=== PATIENT | male | born 1975 | race African-American/Black ===

== ENCOUNTER → 2017-01-29 | Outpatient (CLI) | payer OTHER ==
--- NOTE | 2017-01-29 17:06 | REP ---
CT of the abdomen pelvis without IV and oral contrast: There are no comparison studies. There is marked left hydronephrosis and hydroureter to the left ureteral vesicle junction at the urinary bladder. There is no calculus in the left ureter. Therefore, there may be a stricture of the distal left ureter at its junction with the urinary bladder. There is a nonobstructive 3 mm calculus in the lower pole analy of the left kidney. There are no right renal calculi. There is no right hydronephrosis. The left kidney measures 12 cm craniocaudad length. The right kidney measures 12 cm craniocaudad length. However, there is diffuse renal cortical thickening in the left kidney is a consequence of the hydronephrosis. This suggests the hydronephrosis may be chronic. There is no perinephric stranding or fluid collection on the right or the left. The visualized lung marie are unremarkable. The unenhanced hepatic parenchyma, gallbladder, pancreas and spleen are unremarkable. The adrenals, abdominal aorta, bowel and mesentery are unremarkable. Pelvis: The appendix is unremarkable. Bladder is nondistended and cannot be evaluated. There is no ascites or adenopathy. The pelvic bowel loops are unremarkable. Impression: Marked left hydronephrosis and hydroureter to the level of the urinary bladder, likely chronic as there is diffuse renal cortical thinning of the left kidney. There is a nonobstructive 3 mm calculus in the left kidney in the lower pole analy. There are no ureteral calculi on the left on the right. 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 Signed by Kristopher Vera MD 01/29/2017 04:58 P
== END ==
LOC: M RAD 16:10
PROVIDERS: ATTEND Physician Assistant
DX: R10.9 Unspecified abdominal pain (principal)

== ENCOUNTER → 2017-03-11 | Outpatient (CLI) | payer OTHER ==
[2017-03-11 17:16] LABS: INR 0.97
[2017-03-11 17:17] LABS: PARTIAL THROMBOPLASTIN TIME 30.8 SECONDS (26.8-37.9)
[2017-03-11 17:20] LABS: HEMATOCRIT 45.9 % (42.0-52.0); HEMOGLOBIN 15.5 g/dl (14.0-18.0); MEAN CORPUSCULAR HEMOGLOBIN 29.2 pg (27.0-33.0); MEAN CORPUSCULAR HGB CONC 33.8 g/dl (32.0-36.5); MEAN CORPUSCULAR VOLUME 86.4 fl (80.0-96.0); PLATELET COUNT, AUTOMATED 198 10^3/uL (150-450); RED BLOOD COUNT 5.31 10^6/uL (4.30-6.10); RED CELL DISTRIBUTION WIDTH 12.7 % (11.5-14.5)
[2017-03-11 18:00] LABS: ANION GAP 7 MEQ/L (8-16); BLOOD UREA NITROGEN 15 MG/DL (7-18); CALCIUM LEVEL 9.1 MG/DL (8.5-10.1); CARBON DIOXIDE LEVEL 33 MEQ/L (21-32); CHLORIDE LEVEL 102 MEQ/L (98-107); CREATININE FOR GFR 1.16 MG/DL (0.70-1.30); GLOMERULAR FILTRATION RATE > 60.0 (>60); GLUCOSE, FASTING 97 MG/DL (70-100); POTASSIUM SERUM 3.6 MEQ/L (3.5-5.1); SODIUM LEVEL 142 MEQ/L (136-145)
== END ==
LOC: M SMT 11:56
DX: Z01.818 Encounter for other preprocedural examination (principal); N13.1 Hydronephrosis with ureteral stricture, not elsewhere classified; N39.0 Urinary tract infection, site not specified
CPT/HCPCS: 80048

== ENCOUNTER 2017-03-21 09:16 | Day surgery (SDC) | payer OTHER ==
[2017-03-21] MEDS ORDERED: LIDOCAINE 1% SDV 5 ML VIAL SQ (09:30)
[2017-03-21] MEDS: LR 1,000 ML IV (09:45)
[2017-03-21] MEDS ORDERED: fentaNYL 100 MCG/2 ML INJECTION (J3010) As Ordered (09:46)
[2017-03-21] MEDS ORDERED: MIDAZOLAM INJ 2 MG/2 ML VIAL (J2250) As Ordered (09:46)
[2017-03-21] MEDS: CONRAY-60 60% 50ML VIAL (Q9961) As Ordered (10:40)
[2017-03-21] MEDS ORDERED: PERCOCET 5MG/325MG TAB PO ×3 (11:45)
[2017-03-21] MEDS ORDERED: LR 1,000 ML IV (11:45)
[2017-03-21] MEDS ORDERED: ONDANSETRON 4MG/2ML VIAL (J2405) IV (11:45)
[2017-03-21] MEDS ORDERED: fentaNYL 100 MCG/2 ML INJECTION (J3010) IV (11:45)
[2017-03-21] MEDS ORDERED: METOCLOPRAMIDE INJ 10MG/2ML VIAL (J2765) IV (11:45)
== END 2017-03-21 12:15 | disposition home or self-care (01) ==
LOC: M SDC 09:16
DX: N13.1 Hydronephrosis with ureteral stricture, not elsewhere classified (principal); Q62.2 Congenital megaureter; I10 Essential (primary) hypertension; G47.30 Sleep apnea, unspecified; Z87.440 Personal history of urinary (tract) infections; Z79.899 Other long term (current) drug therapy
CPT/HCPCS: 52341

== ENCOUNTER → 2017-04-24 | Outpatient (CLI) | payer OTHER ==
[~2017-04-24] MED LIST: FUROSEMIDE 20 MG/2 ML VIAL (J1940) As Ordered
== END ==
LOC: M RAD 08:25
DX: N13.1 Hydronephrosis with ureteral stricture, not elsewhere classified (principal)

== ENCOUNTER 2017-05-01 13:31 | Emergency (ER) | payer OTHER ==
[2017-05-01 15:15] LABS: BASO % 0.3 % (0.0-1.0); EOS % 0.3 % (0.0-3.0); HEMATOCRIT 48.2 % (42.0-52.0); HEMOGLOBIN 16.5 g/dl (14.0-18.0); IMMATURE GRANULOCYTE % 0.1 % (0-3.0); LYMPH # 1.6 10^3/uL (1.5-4.5); LYMPH % 22.5 % (24.0-44.0); MEAN CORPUSCULAR HEMOGLOBIN 29.3 pg (27.0-33.0); MEAN CORPUSCULAR HGB CONC 34.2 g/dl (32.0-36.5); MEAN CORPUSCULAR VOLUME 85.6 fl (80.0-96.0); MONO # 0.5 10^3/uL (0.0-0.8); NEUTROPHILS # 4.9 10^3/uL (1.8-7.7); NEUTROPHILS % 69.8 % (36.0-66.0); PLATELET COUNT, AUTOMATED 176 10^3/uL (150-450); RED BLOOD COUNT 5.63 10^6/uL (4.30-6.10); RED CELL DISTRIBUTION WIDTH 12.8 % (11.5-14.5)
[2017-05-01] MEDS: NS 500 ML IV (15:15)
[2017-05-01 15:21] LABS: ANION GAP 9 MEQ/L (8-16); BLOOD UREA NITROGEN 16 MG/DL (7-18); C REACTIVE PROTEIN QUANTITATIV < 0.30 MG/DL (0.00-0.30); CALCIUM LEVEL 8.8 MG/DL (8.5-10.1); CARBON DIOXIDE LEVEL 28 MEQ/L (21-32); CHLORIDE LEVEL 101 MEQ/L (98-107); CREATININE FOR GFR 1.24 MG/DL (0.70-1.30); GLOMERULAR FILTRATION RATE > 60.0 (>60); GLUCOSE, FASTING 108 MG/DL (70-100); POTASSIUM SERUM 3.8 MEQ/L (3.5-5.1); SODIUM LEVEL 138 MEQ/L (136-145)
[2017-05-01] MEDS: MORPHINE 2 MG/ML 1ML SYRINGE (J2270) IV (15:35)
[2017-05-01] MEDS: ONDANSETRON 4MG/2ML VIAL (J2405) IV (15:36)
[2017-05-01] MEDS: KETOROLAC 30 MG/ML VIAL (J1885) IV (15:36)
[2017-05-01 15:37] LABS: KETONE, URINE AUTO RFX NEGATIVE (NEGATIVE); LEUKOCYTE ESTERASE UR AUTO RFX NEGATIVE (NEGATIVE); MUCUS, URINE RFX SMALL (NEGATIVE); NITRITE, URINE AUTO RFX NEGATIVE (NEGATIVE); RBC, URINE AUTO RFX 26 /HPF (0-3); SPECIFIC GRAVITY UR AUTO RFX 1.018 (1.002-1.035); SQUAM EPITHELIAL CELL UR AURFX 0 /HPF (0-6); WBC, URINE AUTO RFX 1 /HPF (0-3)
== END 2017-05-01 16:24 | disposition home or self-care (01) ==
LOC: M ED 13:31
DX: R10.9 Unspecified abdominal pain (principal); N13.30 Unspecified hydronephrosis; Z98.890 Other specified postprocedural states; R11.2 Nausea with vomiting, unspecified; Z87.448 Personal history of other diseases of urinary system; Z79.899 Other long term (current) drug therapy
CPT/HCPCS: J2405